=== PATIENT | female | born 1945 | race Caucasian/White ===

== ENCOUNTER 2016-02-19 22:18 | Observation (INO) ==
--- NOTE | 2016-02-19 22:41 | PROVIDER DOCUMENTATION ---
HPI-Syncope/Dizziness - General Stated Complaint: DIZZY Time Seen by Provider: 02/19/16 22:19 Source: patient Allergies/Adverse Reactions: Patient Allergies Allergy/AdvReac Type Severity Reaction Status Date / Time prednisone Allergy Unknown Verified 02/19/16 23:15 Sulfa (Sulfonamide Allergy Unknown Verified 02/19/16 23:15 Antibiotics) Home Medications: Aspirin 325 mg PO DAILY 02/20/16 Calcium Carbonate [Calcium] 400 mg PO DAILY 02/20/16 Carvedilol 12.5 mg PO BID 02/20/16 Chlorthalidone 25 mg PO DAILY 02/20/16 Cholecalciferol (Vit D3) [Vitamin D] 1,000 unit PO DAILY 02/20/16 Fluticasone Propionate 110 INH [Flovent 110 Microgm Hfa] 1 puff INH RTBID Insulin Glargine [Lantus] 55 unit SUBQ QAM 02/20/16 Insulin Lispro [Humalog] 6 unit SQ TID 02/20/16 Levothyroxine [Synthroid] 50 microgm PO DAILY 02/20/16 Omeprazole 20 mg PO DAILY 02/20/16 SIMVAstatin [Zocor] 20 mg PO QHS 02/20/16 Umeclidinium Brm/Vilanterol Tr [Anoro Ellipta 62.5-25 Mcg INH] 1 each IH DAILY 02/20/16 - History of Present Illness-Syncope/Dizzy Nature of Presenting Problem: 70 y/o f presents to the ed with dizziness. pt states she was at home watching the game and decided to check her blood sugar like she routinely does due to being a diabetic, BS level was 110 so she decided to eat a peanut butter cracker and she still felt dizzy and called EMS. upon arrival the pt BS level was 86 and the pt started vomiting. pt denies any chest pain/cough. Prior Episodes: reports: single episode today Onset/Duration: reports: this evening Timing: reports: still present Position/Activity at time of episode: reports: sitting Symptoms prior to episode: reports: lightheaded Location of injury. (If syncope resulted in an injury.): reports: none Current Symptoms: reports: vomiting, lightheaded Recently Seen Here or By Another Healthcare Provider: No - Dizziness Severity in ED: reports: mild Dizziness Related Current/Associated Symptoms: reports: dizzy Any recent trauma/injury?: reports: none Review of Systems - Adult - REVIEW OF SYSTEMS - ADULT Constitutional: denies: chills, fever Ears, Nose, Mouth & Throat: denies: epistaxis, sinus problem Neurological: reports: dizziness/vertigo. denies: headache/migraines Past History - Adult - PAST MEDICAL HISTORY-ADULT Review of Records: reports: Old Records Reviewed, Nursing Assessment Review, Medications Reviewed - IMMUNIZATION STATUS Childhood Immunizations: See Nurse Assessment Flu Vaccine: See Nurse Assessment - SOCIAL HISTORY Smoking: non-smoker Physical Exam-General - PHYSICAL EXAM-ADULT Initial Vital Signs Reviewed: Yes - CONSTITUTIONAL General Appearance: alert, no apparent distress - EYES Eyes: PERRL/EOMI, pink conjunctivae, fundi clear, no AV nicking - HEAD, EARS, NOSE, MOUTH & THROAT HENMT: normocephalic/atraumatic, moist mucous membranes, normal ENT inspection, TMs normal - NECK Neck: non-tender, full range of motion, supple - RESPIRATORY Respiratory: chest non-tender, lungs clear, normal breath sounds - CARDIOVASCULAR Cardiovascular: normal peripheral pulses, regular rate, rhythm - GASTROINTESTINAL (ABDOMEN) Abdominal Exam: normal bowel sounds, non tender, soft - MUSCULOSKELETAL Back Exam: normal inspection Extremity: swelling (bilateral ankles) - SKIN Integumentary: normal color, normal turgor, warm/dry - PSYCHIATRIC Psych/Mental Status: normal mood/affect, normal thought content, normal thought process, oriented x 3 Progress - PLAN OF CARE/RESULTS Progress/Plan/Lab Results: plan of care: labs, imaging,admit as inpatient Laboratory Tests 02/19/16 02/19/16 02/20/16 22:55 22:55 00:10 WBC 7.37 RBC 4.83 Hgb 14.4 Hct 43.3 MCV 89.6 MCH 29.8 MCHC 33.3 RDW Std Deviation 13.6 Plt Count 233 MPV 10.4 Immature Gran % (Auto) 0.4 Neut % (Auto) 60.8 Lymph % (Auto) 26.7 Guadalupe % (Auto) 10.0 H Eos % (Auto) 2.0 Baso % (Auto) 0.1 Immature Gran # (Auto) 0.03 Neut # (Auto) 4.47 Lymph # (Auto) 1.97 Guadalupe # (Auto) 0.74 H Eos # (Auto) 0.15 Baso # (Auto) 0.01 D-Dimer 4.27 H Sodium 138 Potassium 4.3 Chloride 102 Carbon Dioxide 24 L Anion Gap 12 BUN 28 H Creatinine 1.7 H Estimated GFR/1.73 m2 30 BUN/Creatinine Ratio 16 Glucose 93 Calculated Osmolality 281 Calcium 8.6 L Total Bilirubin 0.33 AST 23 ALT 22 Alkaline Phosphatase 62 Troponin T Total Protein 6.6 Albumin 3.4 L Globulin 3.2 Albumin/Globulin Ratio 1.1 Lipase 12 L 02/20/16 00:10 WBC RBC Hgb Hct MCV MCH MCHC RDW Std Deviation Plt Count MPV Immature Gran % (Auto) Neut % (Auto) Lymph % (Auto) Guadalupe % (Auto) Eos % (Auto) Baso % (Auto) Immature Gran # (Auto) Neut # (Auto) Lymph # (Auto) Guadalupe # (Auto) Eos # (Auto) Baso # (Auto) D-Dimer Sodium Potassium Chloride Carbon Dioxide Anion Gap BUN Creatinine Estimated GFR/1.73 m2 BUN/Creatinine Ratio Glucose Calculated Osmolality Calcium Total Bilirubin AST ALT Alkaline Phosphatase Troponin T < 0.010 Total Protein Albumin Globulin Albumin/Globulin Ratio Lipase Orders Category Date Time Status CHEST-2 VIEWS [RAD] Stat Exams 02/19/16 22:42 Taken CBC WITH ELECTRONIC DIFF [HEME] Stat Lab 02/19/16 22:55 Completed COMPREHENSIVE METABOLIC PANEL [CHEM] Stat Lab 02/19/16 23:15 Completed Ddimer [D-DIMER] [CHEM] Stat Lab 02/19/16 22:55 Completed LIPASE [CHEM] Stat Lab 02/19/16 23:15 Completed TROPONIN T Stat Lab 02/19/16 23:15 Completed Hydralazine [Apresoline] Med 02/19/16 23:28 Discontinued 10 mg IV NOW ONE Hydralazine [Apresoline] Med 02/20/16 01:04 Discontinued 25 mg IV NOW ONE Ondansetron [Zofran] Med 02/19/16 22:43 Discontinued 4 mg IV NOW ONE Promethazine [Phenergan] Med 02/20/16 00:55 Discontinued 25 mg IV NOW ONE Sodium Chloride 0.9% Med 02/20/16 00:55 Discontinued 10 ml INJ NOW ONE EKG [EKG] Stat Ther 02/19/16 22:20 Ordered Vital Signs - 24 hr 02/19/16 02/19/16 02/20/16 22:39 23:04 00:06 Temperature 98.1 F Pulse Rate 72 72 63 Respiratory 18 20 18 Rate Blood Pressure 210/121 224/82 188/101 O2 Sat by Pulse 96 97 96 Oximetry 02/20/16 00:51 Temperature Pulse Rate 70 Respiratory 20 Rate Blood Pressure 184/61 O2 Sat by Pulse 97 Oximetry - EKG 1 Time of EKG reading by physician:: 22:42 EKG Read and Signed by:: Quincy Sinclair Rate: 70 Rhythm: sinus rhythm w/1st degree AV block 2 Time of EKG reading by physician:: 01:59 EKG Read and Signed by:: Quincy Sinclair Rate: 79 Rhythm: sinus rhythm w 1st degree av block - XRAY 1 XRAY Study: Chest XRAY Interpretation: normal - CONSULTS/PCP/HOSPITALIST Notification #1 *Consult/PCP/Hospitalist*: Dr. Frank Time Discussed: 01:08 Consult Disposition: Admit Departure - Departure Time of Disposition Order: 01:10 DIAGNOSIS: Vomiting Qualifiers: Vomiting type: unspecified Vomiting Intractability: unspecified Nausea presence : unspecified Qualified Code(s): R11.10 - Vomiting, unspecified Hypertension Qualifiers: Hypertension type: essential hypertension Qualified Code(s): I10 - Essential ( primary) hypertension Disposition: ADMITTED INPATIENT 09 Certified Medical Emergency: Emergent Condition: Stable Referrals: Priscilla Osei MD [Primary Care Provider] - Attestation - Scribe Verification/Attestation Scribe:: Fariha Webb Acting as Scribe for:: Quincy Sinclair Scribjohanna documention review:: This chart was documented by a scribe and accurately reflects the service the provider performed and the decisions made by the provider.
[2016-02-19] MEDS ORDERED: ZOFRAN IV ONE (22:43)
[2016-02-19 23:08] LABS: MANUAL DIFF NEEDED? NO
[2016-02-19 23:10] LABS: BASO% 0.1 % (0.0-0.8); EOS# 0.15 X1000 (0.0-0.7); HEMATOCRIT 43.3 % (37.0-47.0); HEMOGLOBIN 14.4 g/dL (12.0-16.0); IMM GRAN# 0.03 X1000 (0.0-0.04); IMM GRAN% 0.4 % (0.0-0.5); LYMPH# 1.97 X1000 (1.2-3.4); LYMPH% 26.7 % (20.5-51.1); MCH 29.8 PG (27-31); MCHC 33.3 g/dL (33-37); MCV 89.6 FL (81-99); MONO# 0.74 X1000 (0.11-0.59); MPV 10.4 FL (7.4-10.4); NEUT% 60.8 % (42.2-75.2); PLT 233 X1000 (130-400); RBC 4.83 XMIL (4.2-5.4)
[2016-02-19] MEDS ORDERED: APRESOLINE IV ONE (23:28)
[2016-02-20 00:35] LABS: ALBUMIN 3.4 g/dL (3.5-5.0); CALCIUM 8.6 mg/dL (8.8-10.2); POTASSIUM 4.3 mmol/L (3.5-5.1); TOTAL BILIRUBIN 0.33 mg/dL (0.20-1.00); TOTAL PROTEIN 6.6 g/dL (6.3-8.3)
[2016-02-20] MEDS ORDERED: SODIUM CHLORIDE 0.9% INJ ONE (00:55)
[2016-02-20] MEDS ORDERED: PHENERGAN IV ONE (00:55)
[2016-02-20] MEDS ORDERED: APRESOLINE IV ONE (01:04)
[2016-02-20 01:27] LABS: ALLEN TEST YES; BE -0.4 mmoll (-3.0-3.0); BLOOD TYPE ARTERIAL; DRAW SITE L RADIAL; METHB 0.6 % (0.0-1.5); PCO2(98.6) 42 mmHg (35-45); PO2(98.6) 67 mmHg (60-100); SAMPLE BLOOD; SAO2 93.5 % (95.0-100.0); THB 13.9 g/dL (11.5-17.4); pH(98.6) 7.38 (7.35-7.45)
[2016-02-20 01:28] LABS: MODALITY ROOM AIR
[2016-02-20] MEDS ORDERED: ZOFRAN IV PRN (02:00)
[2016-02-20] MEDS ORDERED: LOVENOX SUBQ ONE (02:07)
[2016-02-20] MEDS ORDERED: APRESOLINE IV PRN (02:10)
[2016-02-20] MEDS: HUMALOG SUBQ SCH ×5 (02:15→18:42)
[2016-02-20 02:54] LABS: HDL 63 mg/dL (45-65); HEMOGLOBIN A1C 7.3 % (4.8-6.0); LDL 74 mg/dL; TRIGLYCERIDES 96 mg/dL (35-135); VLDL 19 mg/dL
[2016-02-20] MEDS: NS 1,000 ML IV SCH ×2 (02:57→16:27)
--- NOTE | 2016-02-20 05:06 | HISTORY AND PHYSICAL ---
PRIMARY CARE PROVIDER: Dr. Priscilla Osei. She also sees a Dr. Fine. POWER BENDER OPERATOR: I believe at [facility]. CHIEF COMPLAINT: Dizziness, nausea, and vomiting. HISTORY OF PRESENT ILLNESS: This is a 70-year-old, female who was at home watching TV with her . She decided to check her blood sugar, as she routinely does related to be having diabetes mellitus type 2 with insulin dependence. She noted her blood sugar level to be 110 so she decided to have a peanut butter cracker. She felt dizzy and called EMS. On arrival, the patient's blood sugar was 86. She began to have nausea and vomiting. She denies any chest pain, syncope, fever, chills, cough, diarrhea, polydipsia, polyuria, or polyphagia. It should be noted that roughly 2 weeks ago, the patient had traveled to [place]. This was around . At that time, she started to feel ill and went to the urgent care. She was given Zithromax. When she arrived back this previous Friday, she still was not feeling well. She went to urgent care and was given Tamiflu after being positive per nasal swab for flu. She has other diagnoses that include mild COPD per her PFTs, hypertension, hypothyroidism, and remote history of breast cancer with a right mastectomy. On arrival to the ER, she was noted to have a very elevated blood pressure at 224/82. She received hydralazine in the emergency room and it has subsequently normalized. Laboratory data was completed which was grossly normal other than a D- dimer of 4.27. For this reason, she will be admitted for further evaluation and testing. PAST MEDICAL HISTORY: 1. Diabetes mellitus type 2, now insulin-dependent. 2. Mild COPD. 3. Hypertension. 4. Hyperlipidemia. 5. Hypothyroidism. 6. Right breast cancer. 7. Chronic kidney disease stage III to IV. PREVIOUS SURGICAL HISTORY: 1. . 2. Right rotator cuff surgery. 3. Right mastectomy. 4. Left breast reduction. 5. Tonsillectomy. SOCIAL HISTORY: She is a retired teacher. Lives at home with her . Denies tobacco, alcohol, or illicit drug use or abuse. FAMILY HISTORY: Family history was gone over with the patient. She received Phenergan and is somewhat lethargic. The states that he is unaware of any chronic health issues in first- degree relatives. ALLERGIES: Prednisone and sulfa antibiotics. REVIEW OF SYSTEMS: Fourteen point review of systems was conducted with the patient. Pertinent positives listed above in the HPI. All other systems negative. PHYSICAL EXAMINATION: VITAL SIGNS: Temperature 98.1 degrees, pulse 77, respirations 18, blood pressure 154/59, oxygen saturation 96% on room air. GENERAL: Lethargic female on the ER stretcher after receiving Phenergan. She does arouse, is very slow to answer questions. Is alert and oriented x3. He is noted to be morbidly obese. is at bedside, very helpful with answering questions. No acute distress. HEENT: Head is atraumatic, normocephalic. Pupils equal, round, reactive to light. Extraocular eye movements intact. Sclerae anicteric. Conjunctivae are pink. Oral mucosa is dry. NECK: Supple. No JVD. No thyromegaly. Trachea is midline. No cervical lymphadenopathy. CARDIAC: Regular rate and rhythm. S1-S2 appreciated. No murmurs, gallops, rubs. LUNGS: Clear to auscultation bilaterally. No rhonchi, wheezes, or rales. Symmetrical rise and fall with respirations. ABDOMEN: Protuberant, soft, nondistended, nontender. Bowel sounds present in all 4 quadrants, hypoactive. No pulsatile mass. No organomegaly. EXTREMITIES: No clubbing, cyanosis, or edema. Color change noted to bilateral lower extremities, mid calf down, likely related to chronic venous stasis. There are 2+ pedal pulses bilaterally. GENITOURINARY: No bladder distention noted. Patient voids. Otherwise deferred. NEUROLOGICAL: Cranial nerves could not be fully tested related to patient's lethargy from receiving Phenergan IV. However, no focal deficits were noted. DIAGNOSTIC DATA: Chest x-ray, NAD. EKG, sinus rhythm with a first-degree AV block, a rate of 70. HOME MEDICATIONS: 1. Zocor 20 mg p.o. at bedtime. 2. Omeprazole 20 mg p.o. daily. 3. Synthroid 50 mcg p.o. daily. 4. Insulin lispro 6 units subcutaneously t.i.d. 5. Lantus 55 units subcutaneously q.a.m. 6. Flovent 110 mcg inhalation b.i.d. 7. Vitamin D 1000 units p.o. daily. 8. Chlorthalidone 25 mg p.o. daily. 9. Carvedilol 12.5 mg p.o. b.i.d. 10. Aspirin 25 mg p.o. daily. 11. Anoro Ellipta 62.5/25 mcg inhalation once daily. 12. Calcium carbonate 400 mg p.o. daily. LABORATORY DATA: CBC within normal limits. D-dimer 4.27. ABG within normal limits. This was on room air. Sodium 138, potassium 4.3, chloride 102, carbon dioxide 24, BUN 28, creatinine 1.7, glucose 93. Troponin less than 0.01. ASSESSMENT: 1. Hypertensive urgency. 2. Hypertensive kidney disease. 3. Chronic kidney disease stage III to IV. 4. Nausea and vomiting. 5. Diabetes mellitus type 2, now insulin dependent. 6. Morbid obesity. 7. Mild chronic obstructive pulmonary disease. 8. Rule out pulmonary embolism. Well's criteria was calculated with a score of 3 with a 21% likelihood of a pulmonary embolism. PLAN: Admit patient to the medical floor in observation status. Echocardiogram, carotid ultrasound, and a V/Q scan in a.m. Consult Dr. Duran related to chronic kidney disease to evaluate and treat. Recheck troponin and CK profile. Check hemoglobin A1c. Recheck CBC and BMP. Check lipid profile. Check magnesium. Check TSH. Continue Synthroid for hypothyroidism. Continue all home medications other then her thiazide diuretic, her insulin lispro, and her Lantus. Q.4 hour blood sugars with moderate sliding scale insulin will be given. We will give Lovenox 1 mg/kg 1 time dose until pulmonary embolism can be excluded as a diagnosis. Normal saline at 75 mL an hour. We will continue p.r.n. Phenergan and Zofran to be alternated for nausea and vomiting. Hydralazine 10 mg IV q.4 hours for systolic blood pressure greater than 165. Further recommendations per clinical course. Dictated by PRECIOUS Esquivel for Juan Ryder MD
--- NOTE | 2016-02-20 06:20 | EKG Report ---
Test Performed on : 02/20/2016 01:50:53 AM Test Reason : htn Blood Pressure : / mmHG Vent. Rate : 079 BPM Atrial Rate : 079 BPM P-R Int : 264 ms QRS Dur : 138 ms QT Int : 448 ms P-R-T Axes : 069 -48 032 degrees QTc Int : 513 ms Sinus rhythm. with 1st degree AV block. Right bundle branch block Left anterior fascicular block Bifascicular block Minimal voltage criteria for LVH, may be normal variant Abnormal ECG When compared with ECG of 19-FEB-2016 22:29, (Unconfirmed) No significant change was found Unconfirmed Result
--- NOTE | 2016-02-20 06:21 | EKG Report ---
Test Performed on : 02/19/2016 10:29:01 PM Test Reason : CP Blood Pressure : / mmHG Vent. Rate : 070 BPM Atrial Rate : 070 BPM P-R Int : 268 ms QRS Dur : 144 ms QT Int : 450 ms P-R-T Axes : 041 -44 068 degrees QTc Int : 486 ms Sinus rhythm. with 1st degree AV block. Left axis deviation Right bundle branch block Minimal voltage criteria for LVH, may be normal variant Abnormal ECG No previous ECGs available Unconfirmed Result
--- NOTE | 2016-02-20 07:54 | Diag Imaging Result Document ---
PROCEDURE NAME: LUNG SCAN / VQ - 02/20/2016 NUCLEAR MEDICINE V/Q SCAN: COMPARISON: None available. FINDINGS: 38.2 mCi of aerosolized technetium-99m DTPA was administered for the ventilation portion of the scan. 5.9 mCi of IV technetium-99m MAA was administered for the perfusion portion of the scan. No discrete perfusion defects are identified. The ventilation portion of the scan is also unremarkable. IMPRESSION: Negative V/Q scan.
[2016-02-20] MEDS ORDERED: TYLENOL PO PRN (08:09)
--- NOTE | 2016-02-20 08:27 | Diag Imaging Result Document ---
PROCEDURE NAME: CHEST-2 VIEWS - 02/19/2016 FRONTAL AND LATERAL CHEST, TWO VIEWS: COMPARISON: Compared to 02/15/2016. FINDINGS: The lungs are well expanded. The heart is borderline mildly prominent. The vessels are not distended. No pleural effusions. No pneumonia. There are multiple surgical clips in the right axilla. IMPRESSION: No acute abnormality.
[2016-02-20] MEDS: FLOVENT 110 MICROGM HFA INH SCH (09:51)
[2016-02-20] MEDS: ANORO ELLIPTA 62.5-25 MCG INH INH SCH (09:53)
--- NOTE | 2016-02-20 11:55 | CONSULTATION ---
DATE OF CONSULTATION: 02/20/2016 REASON FOR ADMISSION: Dizziness associated with nausea and vomiting. REASON FOR CONSULT: Acute kidney injury on chronic kidney disease stage 3. CONSULTING PHYSICIAN: Dr. Ryder. PRIMARY CARE PHYSICIAN: Dr. Priscilla Osei. UNDERWEAR HEMMER: Dr. Fine at [facility]. HISTORY OF PRESENT ILLNESS: Ms. Lozoya is a 70-year-old white female who is followed by Dr. Priscilla Osei with known CKD stage 3 and a baseline creatinine in the 1.7-2.1 range over the last 3 years. Patient stated that approximately 1 week ago on Friday she had been traveling. Had presented to a clinic and was found to have a positive nasal swab for influenza type A. She was given Tamiflu. She continued to develop a cough. Came home. Followed up with Dr. Priscilla Osei last week on . According to her yesterday she was sitting and watching TV. She became severely weak. She thought maybe it was her blood sugar. She ended up eating peanut butter and crackers. This did not help. She felt nauseated. She started having some emesis. Subsequently due to her worsening condition she was brought to [facility] Emergency Department. It was found at that time her blood pressure was 224/82. She was given hydralazine in the emergency room. Her lab indicated a D-dimer 4.27. She had a V/Q scan which was essentially negative. She was subsequently hospitalized for further evaluation and workup. On her initial labs it was found that her creatinine was 1.7 with a BUN of 28. Subsequently we have been called to follow with primary care team during this hospitalization. At this time she denies chest pain. No increased work of breathing. Positive for chronic cough she thinks due to nasal drainage. Chest x-ray this a.m. was essentially negative for pulmonary edema or fluid volume overload. Nausea continues. No emesis noted. She has had a bout of diarrhea in the last 24 hours. No fever or chills. PAST MEDICAL HISTORY: Positive for diabetes mellitus type 2, now insulin dependent. Chronic kidney disease stage 3 with baseline creatinine at 1.7. Mild COPD, hypertension , hyperlipidemia, hypothyroidism, right breast cancer, hypothyroidism and reflux disease. SURGICAL HISTORY: section, right rotator cuff surgery, right mastectomy, left breast reduction and a tonsillectomy. SOCIAL HISTORY: She is . She lives with her spouse. She is a retired teacher. Denies tobacco, alcohol or illicit drug use. FAMILY HISTORY: Positive. Denies any kidney disease with the family. Positive for hypertension. CURRENT ALLERGIES: Prednisone and sulfa antibiotics. HOME MEDICATIONS: Are Zocor, omeprazole, Synthroid, Humalog, Lantus, Flovent, vitamin D 3, chlorthalidone, carvedilol, aspirin, Anoro Ellipta inhaler and calcium acetate. REVIEW OF SYSTEMS: Times 10 with pertinent positives listed above in the HPI. Her most recent vital signs: Temperature 97.7 degrees, blood pressure 116/84, heart rate is 84, respirations 16. She is on room air. Last recorded saturation of 99%. She has 225 in. She has been voiding. LABS: This a.m., sodium 138, potassium 4.3, chloride 102, CO2 24, BUN 28, creatinine 1.7. Glucose 93. She has an anion gap of 12. Calcium of 8.6. Albumin 3.4. Negative troponin. TSH is 4.82. White count 7.37, hemoglobin 14.4, hematocrit 43.3 with a platelet count of 233,000. ABGs on admission pH 7.38, CO2 42, PO2 67, bicarb 24.5. Her lactate is 0.6. This is on room air. She had a V/Q scan which was negative. Chest x-ray is negative. Chest x-ray done last week on the was negative for pneumonia or bronchitis. PHYSICAL EXAMINATION: General: This is a 70-year-old white female. She appears mildly ill. She is in no acute distress. Skin: Warm and dry. HEENT: Normocephalic, atraumatic. Conjunctiva is pale. She has ZULEIMA. Neck: Supple. Trachea midline. No JVD. Cardiovascular : Regular rate and rhythm. No murmur or gallop appreciated. Lungs: Diminished breath sounds posterior. She has an audible anterior wheeze. She remains on room air. Equal excursion. Abdomen: Soft, round, nontender. Positive bowel sounds. Genitourinary: Not inspected. Minimal void. Extremities: She has 2+ pitting pedal edema. She has chronic venous stasis as noted. Integumentary: The patient has a few ecchymoses noted to the upper extremities. Otherwise, no rashes or lesions noted to the trunk. Neurological: Alert and oriented x3. ASSESSMENT AND PLAN: 1. Chronic kidney disease stage 3B. Patient remains at her baseline creatinine. We will do a preliminary staging of her chronic kidney disease. We will check a renal ultrasound. We will check urine electrolytes and continue to monitor. She continues on IV fluids with no indications for changes. 2. Electrolytes and acid-base balance. These remain stable. 3. Anemia. This is at target. 4. Increased work of breathing. This has improved. 5. Weakness. This continues stable. We will defer to the primary care team. I would like to thank you for allowing us to follow with this patient. Seen, data reviewed, discussed with Erik Story on 02/19/15. I agree with the above assessment and plan of care. rg Dictated by PRECIOUS Elder for Cornell Duran MD [facility]
--- NOTE | 2016-02-20 13:25 | Diag Imaging Result Document ---
PROCEDURE NAME: US RENAL 2 (RETROPER) COMPLETE - 02/20/2016 RENAL ULTRASOUND: FINDINGS: The right kidney is 9.2 x 4.1 x 5.1 cm and the left is 9 x 3.1 x 4.1 cm. There is no evidence of hydronephrosis or mass. Both kidneys are somewhat hyperechoic in appearance. The bladder is unremarkable. IMPRESSION: 1. No evidence of obstructive uropathy. 2. Generalized renal atrophy and possible medical renal disease.
[2016-02-20] MEDS: ASPIRIN PO SCH (16:30)
[2016-02-20] MEDS: COREG PO SCH ×2 (16:31→20:37)
[2016-02-20] MEDS: SYNTHROID PO SCH (16:33)
[2016-02-20] MEDS: PRILOSEC PO SCH (16:34)
[2016-02-20] MEDS: VITAMIN D PO SCH (16:34)
[2016-02-20] MEDS: TUMS PO SCH (16:35)
[2016-02-20 18:41] LABS: UR CREAT RANDOM 47.3 mg/dL (11-20); UR PROT RANDOM 265.2 mg/dL
[2016-02-20] MEDS ORDERED: ZOCOR PO SCH (21:00)
[2016-02-21] MEDS: HUMALOG SUBQ SCH ×3 (05:33→06:10)
[2016-02-21 06:30] LABS: MANUAL DIFF NEEDED? NO
[2016-02-21 06:40] LABS: BASO% 0.2 % (0.0-0.8); EOS% 2.1 % (0.0-10.0); HEMATOCRIT 36.1 % (37.0-47.0); HEMOGLOBIN 11.3 g/dL (12.0-16.0); IMM GRAN# 0.02 X1000 (0.0-0.04); IMM GRAN% 0.4 % (0.0-0.5); LYMPH# 1.72 X1000 (1.2-3.4); LYMPH% 35.8 % (20.5-51.1); MCHC 31.3 g/dL (33-37); MCV 92.8 FL (81-99); MONO# 0.65 X1000 (0.11-0.59); MONO% 13.5 % (1.7-9.3); MPV 10.2 FL (7.4-10.4); PLT 185 X1000 (130-400); RBC 3.89 XMIL (4.2-5.4)
[2016-02-21 07:12] LABS: POTASSIUM 3.8 mmol/L (3.5-5.1)
[2016-02-21 07:36] LABS: CALCIUM 7.9 mg/dL (8.8-10.2)
[2016-02-21 08:57] VITALS: BP 137/40
[2016-02-21] MEDS: FLOVENT 110 MICROGM HFA INH SCH ×2 (09:00→13:34)
[2016-02-21] MEDS: ANORO ELLIPTA 62.5-25 MCG INH INH SCH (09:00)
[2016-02-21] MEDS: ASPIRIN PO SCH (10:06)
[2016-02-21] MEDS: TUMS PO SCH (10:06)
[2016-02-21] MEDS: SYNTHROID PO SCH (10:06)
[2016-02-21] MEDS: VITAMIN D PO SCH (10:06)
[2016-02-21] MEDS: PRILOSEC PO SCH (10:06)
[2016-02-21] MEDS: COREG PO SCH (10:06)
[2016-02-21] MEDS: NS 1,000 ML IV SCH (10:12)
--- NOTE | 2016-02-21 15:35 | ECHO REPORT ---
ORDER DATE: 02/21/2016 INTERPRETING PHYSICIAN: Dr. Amador Case ECHOCARDIOGRAPHIC MEASUREMENTS: Interventricular septum: 1.0 cm. Left ventricular posterior wall: 1.0 cm. Diastolic diameter: 4.8 cm. Left atrium: 3.3 cm. Aortic root: 3.2 cm. SUMMARY OF THE 2-DIMENSIONAL IMAGIN. Aortic valve leaflets are trileaflet. 2. Technically suboptimal study. Poor acoustic window. 3. Normal left ventricular cavity size. Estimated ejection fraction of 60% to 65%. 4. Pulmonic valve not well visualized. 5. Peak velocity across the aortic valve less than 2 m/sec. There is no aortic stenosis or regurgitation. Mitral valve was normal. There is trivial mitral regurgitation. There is mild tricuspid valve regurgitation. Tricuspid valve appeared to be normal. 6. Technically suboptimal study. Poor acoustic window. 7. There is no pericardial effusion or obvious intracardiac mass or thrombus seen.
--- NOTE | 2016-02-21 17:02 | Carotid Study ---
DATE: 02/20/2016 PROCEDURE: Bilateral duplex and color flow imaging of the carotid arteries was performed using a GE Vivid E9 ultrasound system with a 9L-D transducer. REQUESTING PHYSICIAN: INTERPRETING PHYSICIAN: Randell Deal MD INFORMATION SYSTEMS PROFESSOR: Jeramie INDICATION: Dizziness and vertigo with syncope. OBSERVED DATA RIGHT LEFT Brachial Blood Pressure Carotid Pulse Bruits: Carotid/Sub DIAGRAM OF ULTRASOUND IMAGING R L RIGHT INT EXT INT EXT LEFT Hosea (cm/s) Hosea (cm/s) Subclavian 130/5 Subclavian 148/0 CCA Proximal 93/10 CCA Proximal 129/20 CCA Distal 70/10 CCA Distal 125/16 Bulb 84/10 Bulb 98/16 ICA Proximal 52/37 ICA Proximal 145/16 ICA Mid 170/28 ICA Mid 168/23 ICA Distal 151/25 ICA Distal 176/31 ECA 124/2 ECA 187/4 Vertebral 66/10, antegrade flow Vertebral 89/22, antegrade flow ICA/CCA Ratio 1.83 ICA/CCA Ratio 1.38 % Stenosis 60 to 79% % Stenosis 60 to 79% FINDINGS: Irregular calcific plaque is noted to level of the carotid bulbs extending to the internal carotid bilaterally. This is producing a severe stenosis bilaterally. Both vertebral arteries are antegrade flow. INTERPRETATION: Severe stenosis noted to bilateral carotid arteries with irregular calcific plaques noted in the level of the carotid bulb extending into the internal carotid.
--- NOTE | 2016-02-21 20:24 | PROGRESS NOTE ---
DATE: 02/21/2016 TIME SEEN: 7:50 a.m. SUBJECTIVE: Ms. Lozoya is currently resting in bed. She denies chest pain or increased work of breathing. States her nausea and vomiting have improved. She denies any chest pain. OBJECTIVE: Vital signs: Her most recent vital signs are temperature 98.4 degrees, blood pressure 137/40, heart rate 64, respirations are 20. She remains on room air. Last recorded saturation 95%. She has had 1800 in, she has had greater then 500 out, plus, with patient getting up to the bathroom to void. General: This is a 70-year-old white female. She is currently resting in bed. She is in no acute distress. Skin: Warm and dry. HEENT: Normocephalic , atraumatic. Conjunctivae pale. She has ZULEIMA. Mucous membranes moist. Neck: Supple. Trachea midline. No JVD. Cardiovascular: Regular rate and rhythm. No murmur or gallop appreciated. Lungs: Clear to auscultation anterior. Diminished breath sounds to the right posterior base greater than left. She continues on room air, equal excursion. Abdomen: Round, soft, nontender. Positive bowel sounds. Genitourinary: Not inspected. Minimal void. Extremities: Have 2+ pitting edema. No clubbing or cyanosis. Patient states that this is chronic, though improved during her hospitalization. Integumentary: The patient has a few ecchymoses to the upper extremities. Otherwise, no rashes or lesions. Neurological: Alert and oriented x3. LABORATORY: Her most recent labs this a.m., her sodium is 138, potassium 3.8, chloride 108, CO2 20, BUN 30, creatinine 1.9, glucose 83. Her anion gap is 10, calcium 7.9. White count 4.8, hemoglobin 11.3, hematocrit 36.1 with a platelet count of a 185,000. ASSESSMENT AND PLAN: 1. Chronic kidney disease stage III-B. Patient remains at her baseline. We have staged her today. Ultrasound appears to be small in the low 9's with no masses or lesions noted. Venous score was low indicating prerenal. Patient continues on IV fluids as indicated. 2. Electrolytes and acid-base balance. These are stable. 3. Anemia. This is in target. 4. Increased work of breathing with pneumonia. Bilateral pneumonia noted. Patient continues on antibiotics per primary care team. I would to thank you for allowing us to follow with this patient. Seen, data reviewed, discussed with Erik Story on 02/21/16. I agree with the above assessment and plan of care. rg Dictated by PRECIOUS Elder for Cornell Duran MD [facility]
--- NOTE | 2016-02-22 07:56 | DISCHARGE SUMMARY ---
ADMISSION DATE: 02/20/2016 DISCHARGE DATE: 02/21/2016 CONSULTING PHYSICIAN: Dr. Cornell Duran. PERTINENT PROCEDURES: 1. V/Q scan negative. 2. Renal ultrasound showed no evidence of obstructive uropathy, generalized renal atrophy, possible medical renal disease. DISCHARGE DIAGNOSIS: 1. Hypertension urgency, resolved. 2. Chronic kidney disease, stage 3 to 4, stable. 3. Nausea, vomiting, resolved. 4. Diabetes mellitus, type 2. Insulin dependent. Continue home medications. 5. Morbid obesity, aware. 6. Mild chronic obstructive pulmonary disease without exacerbation. Pulmonary embolism ruled out. 7. Electrolytes and acid balance remain stable. 8. Anemia, stable. 9. Weakness, improved. 10. Dyspnea, improved. HOSPITAL COURSE: Briefly, Ms. De Dios is a 70-year-old female, who was at home watching TV with her . She became profoundly weak, checked her blood sugar, and it was 110, so she ate some peanut butter and crackers. This did not improve. She had some dizziness. EMS was called. On arrival, her blood sugar was 86. She began having some nausea and vomiting. Roughly, 2 weeks prior to this, the patient travelled to [place] around the . At that time, she started to feel ill and went to an urgent care. She was given Zithromax. When she arrived back the previous Friday, she was still not feeling well. She went to another urgent care and was given Tamiflu after tested positive for the flu with nasal swab. Other diagnoses includes mild COPD per her PFTs, hypertension, hypothyroidism, remote history of breast cancer with a right mastectomy. On arrival to the ED, she did have elevated blood pressure of 224/82. She was given IV hydralazine, and it subsequently normalized. Laboratory data was grossly normal other than the D-dimer of 4.27. The patient was admitted and underwent a V/Q scan that was normal, and she was treated with antiemetics. Dr. Duran was consulted. The patient is known to have chronic kidney disease stage 3B. She remains at her historical baseline. Her electrolytes and acid base remained stable. Anemia was in target. She did have a slight drop in her hemoglobin and hematocrit. This could be from hydration. The patient was admitted with a hemoglobin of 14 and hematocrit of 43. Today on discharge, it is 11 and 36; however, we do feel this is secondary to rehydration. There are no signs and symptoms of any bleeding. The patient's work of breathing and weakness has improved. She has been instructed to follow up with her primary care physician, Dr. Priscilla Osei in 1 week to repeat a CBC. The patient is being discharged home with her today. DISCHARGE DIET: Diabetic. DISCHARGE MEDICATIONS: 1. Aspirin 325 mg p.o. daily. 2. Calcium 400 mg p.o. daily. 3. 12.5 mg p.o. b.i.d. 4. Chlorthalidone 25 mg p.o. daily. 5. Fluconase 1 puff inhaled RT b.i.d. 6. Humalog 6 units subcutaneously t.i.d. 7. Lantus 55 units subcutaneously q.a.m. 8. Prilosec 20 mg p.o. daily. 9. Synthroid 50 mcg p.o. daily. 10. Vitamin D3, 1000 units p.o. daily. 11. Zocor 20 mg p.o. at bedtime. 12. Ellipta 62.5, 25 mcg 1 each inhaled daily. FOLLOWUP: The patient is being discharged home with her . She can follow up with Dr. Priscilla Osei in 1 week with a repeat CBC. The patient can return to the ED for any worsening of symptoms. DISCHARGE TIME: 30 minutes. Dictated by PRECIOUS Ashby for Nathanael Mcnair MD
== END 2016-02-21 13:38 | disposition home or self-care (01) ==
LOC: EDBD → ED 22:18 → 3N 02-20 02:50
PROVIDERS: ATTEND Internal Medicine
DX: I16.0 Hypertensive urgency (principal); N18.3 Chronic kidney disease, stage 3 (moderate); D63.0 Anemia in neoplastic disease; E11.22 Type 2 diabetes mellitus with diabetic chronic kidney disease; I12.9 Hypertensive chronic kidney disease with stage 1 through stage 4 chronic kidney disease, or unspecified chronic kidney disease; R11.10 Vomiting, unspecified; R60.0 Localized edema; E03.9 Hypothyroidism, unspecified; E66.01 Morbid (severe) obesity due to excess calories; J44.9 Chronic obstructive pulmonary disease, unspecified; R42 Dizziness and giddiness; K21.9 Gastro-esophageal reflux disease without esophagitis; I87.8 Other specified disorders of veins; M25.472 Effusion, left ankle; M25.471 Effusion, right ankle; Z85.3 Personal history of malignant neoplasm of breast; Z90.11 Acquired absence of right breast and nipple; Z79.4 Long term (current) use of insulin; Z79.82 Long term (current) use of aspirin; Z79.899 Other long term (current) drug therapy; Z79.51 Long term (current) use of inhaled steroids
CPT/HCPCS: 71020; 76770; 78582; 80048; 80053; 80061; 82550; 82570; 82805; 82948; 83036; 83690; 83735; 83935; 84156; 84300; 84443; 84484; 84540; 85025; 85379; 93005; 93306; 93880; 94761; 96372; 96374; 96375; 96376; A9539; A9540; J0360; J1650; J1815; J2405; J2550; J7030; 94640-76